=== PATIENT | female | born 1960 | race Native Hawaiian/Other Pacific Islander ===

== ENCOUNTER 2017-07-08 07:54 | Outpatient (CLI) | payer OTHER ==
--- NOTE | 2017-07-08 10:14 | Ultrasound Report ---
RIGHT UPPER QUADRANT ABDOMINAL ULTRASOUND: 07/08/17 07:54:00 CLINICAL: Right upper quadrant pain. FINDINGS: High-resolution ultrasound demonstrated a normal liver. Normal liver size, contour and echogenicity. No liver mass. Normal hepatic vasculature and inferior vena cava. Normally distended gallbladder with no stones. The gall bladder wall measures 2.0 mm in thickness. Normal intrahepatic and extra hepatic bile ducts. The common bile duct measures 2.0 mm diameter. The pancreas was well imaged and normal. Normal upper abdominal aorta. The right kidney is normal and measures 10.7 x 3.9 x 4.0cm. No ascites or mass. IMPRESSION: Normal study. No cholelithiasis.
== END 2017-07-08 07:55 | disposition home or self-care (01) ==
LOC: SPVWC 07:54
PROVIDERS: ATTEND Internal Medicine
DX: K82.8 Other specified diseases of gallbladder (principal); R10.11 Right upper quadrant pain
CPT/HCPCS: 76705

== ENCOUNTER 2017-09-08 11:08 | Outpatient (CLI) | payer OTHER ==
--- NOTE | 2017-09-08 13:03 | Mammography Report ---
BILATERAL DIGITAL SCREENING MAMMOGRAM with CAD : 09/08/17 11:08:00 CLINICAL: Routine screening. COMPARISON:09/07/16 FINDINGS: The breasts are heterogeneously dense, which may obscure small masses.Extensive bilateral calcifications which are not significantly changed compared to prior exams. No new mass, architectural distortion or suspicious calcifications. IMPRESSION: No mammographic evidence of malignancy. BI-RADS CATEGORY: 2 -- Benign RECOMMENDATION: Routine mammographic screening in one year. COMMENT: Patient follow-up letters are generated by our [employer] application.
== END 2017-09-08 11:09 | disposition home or self-care (01) ==
LOC: SPVWC 11:08
PROVIDERS: ATTEND Specialist
DX: Z12.31 Encounter for screening mammogram for malignant neoplasm of breast (principal)
CPT/HCPCS: 77067; G0202

== ENCOUNTER 2017-10-15 11:04 | Outpatient (CLI) | payer OTHER ==
--- NOTE | 2017-10-15 13:38 | XRay Report ---
RIGHT KNEE, 3 views: History: Right knee pain. Right knee arthroplasty changes are identified. The hardware appears well applied. No evidence for fracture, bone lesion or soft tissue abnormality. IMPRESSION: Stable appearance of the right knee arthroplasty.
== END 2017-10-15 11:05 | disposition home or self-care (01) ==
LOC: SPVIMAG 11:04
PROVIDERS: ATTEND Orthopaedic Surgery Sports Medicine
DX: M25.561 Pain in right knee (principal); Z96.651 Presence of right artificial knee joint

== ENCOUNTER 2018-09-09 10:43 | Outpatient (CLI) | payer OTHER ==
--- NOTE | 2018-09-09 11:27 | Mammography Report ---
Bilateral mammogram: Compared to 09/08/17 and 09/07/16. CAD study utilized. Findings: Heterogeneous breast parenchyma bilaterally. Benign densities bilaterally. Bilateral benign calcifications. New focal asymmetry measuring 5 mm in diameter noted at the upper left breast. Impression: Focal asymmetry upper left breast. Recommend spot compression and sonographic examination. BI-RADS CATEGORY: 0 = Needs additional imaging evaluation ACR BI-RADS MAMMOGRAPHIC CODES: 0 = Needs additional imaging evaluation; 1 = Negative; 2 = Benign; 3 = Probably benign; 4 = Suspicious; 5 = Malignant; 6 = Known biopsy-proven malignancy COMMENT: 1. Dense breast tissue, i.e., adenosis, fibrocystic changes, etc., may obscure an underlying neoplasm. 2. Approximately 10% of cancers are not detected with mammography. 3. A negative mammography report should not delay biopsy if a clinically suspicious mass is present. COMMENT: Patient follow-up letters are generated in [facility].
== END 2018-09-09 10:44 | disposition home or self-care (01) ==
LOC: SPVWC 10:43
PROVIDERS: ATTEND Internal Medicine
DX: Z12.31 Encounter for screening mammogram for malignant neoplasm of breast (principal)
CPT/HCPCS: 77067

== ENCOUNTER 2019-09-26 11:15 | Outpatient (CLI) | payer OTHER ==
--- NOTE | 2019-09-27 09:20 | Mammography Report ---
DIGITAL SCREENING MAMMOGRAM WITH CAD, 09/26/2019 INDICATION: Routine screening mammography. TECHNIQUE: Digital bilateral 2D mammography was obtained in the craniocaudal and mediolateral obliq ue projections. This examination was interpreted with the benefit of Computer-Aided Detection analysi s. COMPARISON: 09/09/2018 and 09/05/2015 FINDINGS: Breast Density: The breasts are heterogeneously dense, which may obscure small masses. There is no evidence of dominant mass, suspicious calcifications or architectural distortion in eithe r breast. A left inner calcified oil cyst. IMPRESSION: No mammographic evidence of malignancy. Follow up recommendation: Routine yearly BI-RADS Category 2: Benign. A "normal" or negative report should not discourage follow up or biopsy of a clinically significant f inding. A written summary of these findings will be mailed to the patient. The patient will be entered into a mammography reporting system which will generate a reminder letter for the patient's next appointmen t at the appropriate interval. The [employer] recommends yearly mammograms starting at age 40 and continuing as l karlos as a woman is in good health. Breast MRI is recommended for women with an approximate 20-25% or greater lifetime risk of breast cancer, including women with a strong family history of breast or ova aravind cancer or who have been treated for Hodgkin's disease. Signer Name: Adam Wick MD Signed: 09/27/2019 9:16 AM Workstation Name: [id number]
== END 2019-09-26 11:16 | disposition home or self-care (01) ==
LOC: SPVWC 11:15
PROVIDERS: ATTEND Internal Medicine
DX: Z12.31 Encounter for screening mammogram for malignant neoplasm of breast (principal)
CPT/HCPCS: 77067

== ENCOUNTER 2020-09-27 11:05 | Outpatient (CLI) | payer OTHER ==
--- NOTE | 2020-09-30 08:43 | Mammography Report ---
DIGITAL SCREENING MAMMOGRAM WITH CAD, 09/27/2020 CLINICAL INFORMATION / INDICATION: Routine screening mammography. TECHNIQUE: Digital bilateral 2D mammography was obtained in the craniocaudal and mediolateral obliqu e projections. This examination was interpreted with the benefit of Computer-Aided Detection analysis . COMPARISON: 09/26/2019, 09/29/2018, 09/09/2018 FINDINGS: Breast Density: The breasts are heterogeneously dense, which may obscure small masses. No dominant mass, suspicious calcifications, or architectural distortion in either breast. Oil cysts are again seen bilaterally along with other generalized bilateral benign calcifications. IMPRESSION: No mammographic evidence of malignancy. Follow up recommendation: Routine yearly BI-RADS Category 2: Benign. A "normal" or negative report should not discourage follow up or biopsy of a clinically significant f inding. A written summary of these findings will be mailed to the patient. The patient will be entered into a mammography reporting system which will generate a reminder letter for the patient's next appointmen t at the appropriate interval. The [employer] recommends yearly mammograms starting at age 40 and continuing as l karlos as a woman is in good health. Breast MRI is recommended for women with an approximate 20-25% or greater lifetime risk of breast cancer, including women with a strong family history of breast or ova aravind cancer or who have been treated for Hodgkin's disease. Signer Name: Colby Moon MD Signed: 09/30/2020 8:38 AM Workstation Name: [id number]
== END 2020-09-27 11:06 | disposition home or self-care (01) ==
LOC: SPVWC 11:05
PROVIDERS: ATTEND Internal Medicine
DX: Z12.31 Encounter for screening mammogram for malignant neoplasm of breast (principal)
CPT/HCPCS: 77067